=== PATIENT | female | born 1995 | race Caucasian/White ===

== ENCOUNTER 2018-01-22 16:40 | Outpatient (CLI) | payer BC, OTHER ==
[2018-01-22 16:30] VITALS: BP 133/75
[2018-01-22] MEDS ORDERED: D5 LR IV SOLUTION 1,000 ML IV ONE ×2 (16:48→17:30)
[2018-01-22 17:00] VITALS: BP 137/72
[2018-01-22 17:30] VITALS: BP 128/71
[2018-01-22 17:31] LABS: BILIRUBIN,URINE NEGATIVE (NEGATIVE); CLARITY,URINE CLEAR; COLOR,URINE YELLOW; GLUCOSE, URINE (UA) NEGATIVE (NEGATIVE); KETONES,URINE 3+ (NEGATIVE); LEUKOCYTE ESTERASE ,URINE NEGATIVE (NEGATIVE); NITRITE,URINE NEGATIVE (NEGATIVE); PH,URINE 7 (5-9); PROTEIN,URINE NEGATIVE (NEGATIVE); UROBILINOGEN,URINE NORMAL (NORMAL)
[2018-01-22 18:00] VITALS: BP 130/70
--- NOTE | 2018-01-23 09:38 | Physician Query-Final Dx ---
FARHAT CHAMPION 01/23/18 0938: Clinic Account Progress/Dx Physician Query: Please give diagnosis Date of Service Jan 22, 2018 at 16:40 BERLIN RAY MD 01/23/18 1246: Clinic Account Progress/Dx DIAGNOSIS: Diagnosis False labor FARHAT CHAMPION Jan 23, 2018 09:38 BERLIN RAY MD Jan 23, 2018 12:46
== END 2018-01-22 18:20 | disposition home or self-care (01) ==
LOC: WSo 16:40 → LDRP 16:41 → WSo 18:20
PROVIDERS: ATTEND Obstetrics & Gynecology
DX: O47.9 False labor, unspecified (principal)
CPT/HCPCS: 81000; 87088; 96360; 99213

== ENCOUNTER → 2018-03-26 | Outpatient (CLI) | payer BC ==
[~2018-03-26] MED LIST: DOCU100C37 PO; IBUP-1780 PO; OXYC-465 PO
== END ==
LOC: LABNPT 15:58
PROVIDERS: ATTEND Obstetrics & Gynecology
DX: O14.03 Mild to moderate pre-eclampsia, third trimester (principal)
CPT/HCPCS: 82570; 84156

== ENCOUNTER → 2018-04-02 | Outpatient (CLI) | payer BC | LOC: LABNPT 16:06 | PROVIDERS: ATTEND Obstetrics & Gynecology | DX: O28.8 Other abnormal findings on antenatal screening of mother (principal) | CPT/HCPCS: 82570; 84156 ==

== ENCOUNTER 2018-04-04 07:00 | Inpatient (IN) | payer BC ==
[2018-04-04] VITALS (40 sets, daily range): BP systolic 124–161; BP diastolic 62–95
[~2018-04-04] VITALS: Ht 172.7 cm; Wt 106.2 kg
[2018-04-04] MEDS ORDERED: OXYTOCIN/NORMAL SALINE 500 ML IV ONE (07:27)
[2018-04-04] MEDS ORDERED: D5 LR IV SOLUTION 1,000 ML IV ONE (07:27)
[2018-04-04] MEDS ORDERED: OXYTOCIN/NORMAL SALINE 500 ML IV SCH (07:39)
--- NOTE | 2018-04-04 07:46 | History & Physical ---
History and Physical Date Seen by Provider: Apr 04, 2018 Time Seen by Provider: 07:42 This patient is a 22-year-old primigravida white female with a due date of April 17, 2018 for 38-1/7 weeks' gestation. She is followed closely for elevated blood pressure through her . She recently developed oligohydramnios as well. She presents now for labor induction with Pitocin. She denies ruptured membranes or bleeding. A GBS culture performed suspension was negative. Allergies are none Medications are vitamins Medical social and surgical histories are present from record HEENT exam is normal Lymphadenopathy no thyromegaly Abdomen gravid soft nontender nondistended Extremities show no clubbing cyanosis. There is no Homans sign. Pelvic exam last performed in clinic showed a cervix that was closed maybe 30 percent effaced -1 station mid plane and relatively firm given her Madden score of about 4 Assessment and plan term at 30 weeks gestation with oligohydramnios and PIH. Patient is admitted now for induction of labor with Pitocin. Decision was made to forego cervical ripening agents due to their potential effects on blood pressures and risks for inspection and . Patient understands the marital wonderful women having their first baby does so via C- section. She further understands that her risk with oligohydramnios and -induced hypertension likely higher than 25 percent.. Anticipation is for vaginal delivery of the plans and preparations were placed for if needed. patient understands and agrees with the plan. 38 week gestation with PIH and oligohydramnios Allergies and Home Medications Allergies Coded Allergies: No Known Drug Allergies (Unverified , 01/22/18) Home Medications No Active Prescriptions or Reported Meds Patient Home Medication List Home Medication List Reviewed: Yes BERLIN RAY MD Apr 04, 2018 7:46 am
[2018-04-04] MEDS: D5 LR IV SOLUTION 1,000 ML IV SCH ×3 (07:50→21:05)
[2018-04-04 08:19] LABS: BASOPHILS % (AUTO) 0 % (0-10); EOSINOPHILS # (AUTO) 0.1 10^3/uL (0.0-0.3); EOSINOPHILS % (AUTO) 1 % (0-10); HEMATOCRIT 31 % (35-52); HEMOGLOBIN 10.5 G/DL (11.5-16.0); LYMPHOCYTES # (AUTO) 1.6 X 10^3 (1.0-4.0); LYMPHOCYTES % (AUTO) 16 % (12-44); MEAN CORPUSCULAR HEMOGLOBIN 27 PG (25-34); MEAN CORPUSCULAR HGB CONC 34 G/DL (32-36); MEAN CORPUSCULAR VOLUME 81 FL (80-99); MONOCYTES # (AUTO) 0.9 X 10^3 (0.0-1.0); MONOCYTES % (AUTO) 9 % (0-12); NEUTROPHILS # (AUTO) 7.3 X 10^3 (1.8-7.8); NEUTROPHILS % (AUTO) 74 % (42-75); PLATELET COUNT 385 10^3/uL (130-400); RED BLOOD COUNT 3.86 10^6/uL (4.35-5.85); RED CELL DISTRIBUTION WIDTH 15.4 % (10.0-14.5)
[2018-04-05] VITALS (23 sets, daily range): BP systolic 130–150; BP diastolic 63–95
[2018-04-05] MEDS: D5 LR IV SOLUTION 1,000 ML IV SCH (06:21)
[2018-04-05] MEDS ORDERED: METOCLOPRAMIDE INJ 10 MG/2 ML (REGLAN) ONE (11:49)
[2018-04-05] MEDS ORDERED: CITRIC ACID/SOB CIT (BICITRA) 30 ML UDC ONE (11:49)
[2018-04-05] MEDS ORDERED: metroNIDAZOLE 500MG/100ML IVPB 100 ML ONE (11:49)
[2018-04-05] MEDS ORDERED: ceFAZolin 2 GM IV Premixed 50 ML ONE (11:50)
[2018-04-05] MEDS ORDERED: fentaNYL INJECTION 100 MCG/2 ML AMP ONE (11:56)
[2018-04-05] MEDS ORDERED: OXYTOCIN/NORMAL SALINE 1,000 ML IV ONE (11:56)
[2018-04-05] MEDS ORDERED: NS (IVPB) 50 ML ONE (11:59)
[2018-04-05] MEDS ORDERED: raNItidine 50 MG/2 ML INJ (ZANTAC) ONE (11:59)
[2018-04-05] MEDS ORDERED: LIDOCAINE PF 1% 5 ML (XYLOCAINE) AMP ONE (12:00)
[2018-04-05] MEDS ORDERED: BUPIVACAINE SPINAL 0.75% (SENSORCAINE) 2 ML AMP ONE (12:00)
--- NOTE | 2018-04-05 12:09 | Progress Note-Standard ---
Standard Progress Note Progress Notes/Assess & Plan Date Seen by Provider: Apr 05, 2018 Time Seen by Provider: 08:15 Progress/Assessment & Plan Patient is without complaint. She is yajaira occasionally. Pitocin was resumed at about 6 a.m. today. She is yajaira with some regularity but with not much bigger. Plan is to continue continue Pitocin induction. Induction began making progress and reasonable time then we will continue otherwise patient likely will be relegated to delivery patient denies ruptured membranes or bleeding. She has no pain. Vital signs are stable. Afebrile R abdomen is benign. Pelvic exam reveals the cervix is barely a centimeter dilated maybe 50 percent effaced the presenting part is very high station and is. Vertex Assessment and plan induction of labor day 2 with Pitocin. The patient does not make satisfactory progress and they then we will proceed with delivery. BERLIN RAY MD Apr 05, 2018 12:09 pm
[2018-04-05] MEDS ORDERED: ONDANSETRON 4 MG/2 ML (SDV) Z0FRAN IVP PRN ×2 (12:15→13:15)
[2018-04-05] MEDS ORDERED: PROMETHAZINE INJ 25 MG/ML (PHENERGAN) AMP IM PRN (12:15)
[2018-04-05] MEDS ORDERED: MEPERIDINE (DEMEROL) INJ 100 MG/ML IM PRN (12:15)
[2018-04-05] MEDS ORDERED: MEASLES,MUMPS,RUBELLA 1 EA INJ SC ONE (12:15)
[2018-04-05] MEDS ORDERED: TETANUS,DIPTH,PERTUSS P/F (BOOSTRIX) 0.5 ML VIAL IM ONE (12:15)
[2018-04-05] MEDS ORDERED: D5 LR IV SOLUTION 1,000 ML IV ONE (12:17)
[2018-04-05] MEDS ORDERED: LACTATED RINGERS 1,000 ML IV PRN (12:37)
[2018-04-05] MEDS: OXYTOCIN/NORMAL SALINE 500 ML IV SCH ×2 (12:44→15:09)
[2018-04-05] MEDS ORDERED: CITRIC ACID/SOB CIT (BICITRA) 30 ML UDC PO ONE (12:45)
[2018-04-05] MEDS ORDERED: raNItidine 50 MG/2 ML INJ (ZANTAC) IV ONE (12:45)
[2018-04-05] MEDS ORDERED: METOCLOPRAMIDE INJ 10 MG/2 ML (REGLAN) IVP ONE (12:45)
[2018-04-05] MEDS ORDERED: OXYTOCIN/NORMAL SALINE 500 ML IV ONE (13:04)
[2018-04-05] MEDS ORDERED: fentaNYL INJECTION 100 MCG/2 ML AMP IVP PRN (13:15)
[2018-04-05] MEDS ORDERED: HYDROmorphone 1 MG/ML (DILAUDID) 1 ML SYRINGE IV PRN (13:15)
[2018-04-05] MEDS: KETOROLAC 30 MG/ML VIAL IVP SCH ×2 (15:09→21:28)
[2018-04-05] MEDS: oxyCODONE/APAP 10/325MG (PERCOCET 10) TABLET PO PRN ×2 (15:58→20:20)
--- NOTE | 2018-04-05 16:25 | OPERATIVE REPORT ---
DATE OF SERVICE: 04/05/2018 DELIVERY/OPERATIVE NOTE PREOPERATIVE DIAGNOSES: Term at 38 weeks gestation in labor with failure to progress and with history of PIH and oligohydramnios, high station. POSTOPERATIVE DIAGNOSES: Term at 38 weeks gestation in labor with failure to progress and with history of PIH and oligohydramnios with cephalopelvic disproportion. PROCEDURE: Primary low transverse delivery of a viable male with Apgars of 9 and 9 at 1 and 5 minutes. Expected weight of 9 pounds 5 ounces. Cord blood pH of 7.30 and a time of 12:43. OPERATIVE DESCRIPTION: With the patient in the supine position under satisfactory spinal anesthesia, she was prepped and draped in the usual fashion for abdominal surgery. Lamb catheter was placed in the urinary bladder and left to dependent drainage. A Pfannenstiel incision made through skin with scalpel and the patient's abdomen entered in the usual manner. Bladder retractor placed into position and a clean scalpel used to make a 4 cm hysterotomy incision transversely across the lower uterine segment that was extended by blunt dissection. Membranes were ruptured in the process of the hysterotomy. A small amount of amniotic fluid was released. It is noted that the presenting part was even above the incision, which was well above the pubic bone. This confirmed a high station. The presenting part was a vertex. Zhu forceps were applied to facilitate the delivery of a vigorous viable male infant. had Apgars, weight, time and cord pH as noted above. The infant was bulb suctioned on delivery of the head and again on completion of delivery. Umbilical cord was doubly clamped and cut and the infant passed to Dr. Chen, the tax manager cpa in attendance for delivery. Cord bloods were obtained. The placenta delivered spontaneously [place]. It was quite large and normal with a 3-vessel cord. The uterus was now exteriorized. The interior wiped and clean with a wet laparotomy sponge and the uterine incision closed with a running locked suture of 2-0 Vicryl. Hemostasis was satisfactory, but the uterus was quite atonic. In spite of IV Pitocin, the uterus remained relatively atonic. A modified B-Bond suture was placed using 2-0 looped chromic sutures placed in the usual fashion to compress the uterus. The uterus was now returned to the abdominal cavity. All blood clot and debris removed from the abdominal cavity. Sponge and needle counts were correct. Hemostasis assured. The anterior parietal peritoneum was closed with a running suture of 2-0 Vicryl. Rectus muscles were closed with that suture as well. The rectus fascia was closed with 2-0 Vicryl, subcutaneous tissue with 2-0 Vicryl and the skin was stapled. Sponge and needle counts were correct at the end of procedure. Estimated blood loss for procedure was 600 mL. The patient tolerated the procedure well and was transferred to the recovery room in stable condition. The infant remained with the mother. Job ID: [id number] DocumentID: [id number] Dictated Date: 04/05/2018 13:10:03 Treating Inspector Date: 04/05/2018 16:25:31 Dictated By: BERLIN RAY MD
[2018-04-05] MEDS: DOCUSATE SODIUM 100 MG (COLACE) CAP PO SCH (21:28)
[2018-04-06] MEDS: oxyCODONE/APAP 10/325MG (PERCOCET 10) TABLET PO PRN ×4 (00:20→18:05)
[2018-04-06 01:00] VITALS: BP 149/87
[2018-04-06] MEDS: KETOROLAC 30 MG/ML VIAL IVP SCH ×2 (02:41→21:16)
[2018-04-06 05:00] VITALS: BP 138/91
[2018-04-06] MEDS: DOCUSATE SODIUM 100 MG (COLACE) CAP PO SCH ×2 (09:35→22:13)
[2018-04-06] MEDS: IBUPROFEN 800 MG (MOTRIN) TAB PO SCH ×3 (09:35→22:13)
[2018-04-06 09:40] VITALS: BP 140/84
--- NOTE | 2018-04-06 11:17 | Anesthesia-Regional Post-Op ---
Regional Patient Condition Mental Status: Alert, Oriented x3 Circulation: Same as Pre-Op Headache: Absent Sensation: Full Recovery Motor Block: Absent Post Op Complications Complications None Follow Up Care/Instructions Patient Instructions None needed. Anesthesia/Patient Condition Patient is doing well, no complaints, stable vital signs, no apparent adverse anesthesia problems. No complications reported per nursing. NAVNEET REAL CRNA Apr 06, 2018 11:17
[2018-04-06 15:30] VITALS: BP 133/81
[2018-04-06 22:13] VITALS: BP 133/83
[2018-04-07] MEDS: oxyCODONE/APAP 10/325MG (PERCOCET 10) TABLET PO PRN ×3 (00:24→15:15)
--- NOTE | 2018-04-07 00:37 | Progress Note-Standard ---
Standard Progress Note Progress Notes/Assess & Plan Date Seen by Provider: Apr 06, 2018 Time Seen by Provider: 23:45 Progress/Assessment & Plan Patient is without complaint. She is yajaira occasionally. Pitocin was resumed at about 6 a.m. today. She is yajaira with some regularity but with not much bigger. Plan is to continue continue Pitocin induction. Induction began making progress and reasonable time then we will continue otherwise patient likely will be relegated to delivery patient denies ruptured membranes or bleeding. She has no pain. Vital signs are stable. Afebrile R abdomen is benign. Pelvic exam reveals the cervix is barely a centimeter dilated maybe 50 percent effaced the presenting part is very high station and is. Vertex Assessment and plan induction of labor day 2 with Pitocin. The patient does not make satisfactory progress and they then we will proceed with delivery. Patient was seen on April 06, 2018 2345 p.m. Patient is without complaint. She has good pain control. She is ambulating, voiding, tolerating by mouth well. She indicates that she is anticipating discharge home on April 07 area Vital Signs Date Time Temp Pulse Resp B/P (MAP) Pulse Ox O2 Delivery O2 Flow Rate FiO2 04/06/18 22:13 99.1 102 18 133/83 (100) 98 Room Air 04/06/18 15:30 99.0 102 18 133/81 (98) Room Air 04/06/18 09:40 99.1 106 16 140/84 (102) 98 Room Air 04/06/18 05:00 99.3 104 18 138/91 (107) 99 Room Air 04/06/18 01:00 99.3 102 18 149/87 (107) 99 Room Air Vital signs are stable. Patient is afebrile. Fundus is firm well the umbilicus and nontender. The surgical incision is clean dry and intact. Extremities show no clubbing cyanosis. There is no Homans sign. Assessment and plan postoperative day number 1 status post primary secondary to the progress. Patient is doing well and will be discharged on April 07. Final Diagnosis Primary delivery BERLIN RAY MD Apr 07, 2018 12:37 am
[2018-04-07] MEDS ORDERED: DOCU100C37 PO (00:43)
[2018-04-07] MEDS ORDERED: OXYC-465 PO (00:43)
[2018-04-07] MEDS ORDERED: IBUP-1780 PO (00:43)
--- NOTE | 2018-04-07 00:45 | Discharge Instructions ---
Discharge Instructions Discharge Medications New, Converted or Re-Newed RX: RX on Chart Patient Instructions Patient Instructions: as directed Return to The Hospital For: As directed Activity & Diet Discharge Diet: No Restrictions Activity as Tolerated: No Orders-Post D/C & Referrals Follow Up Appt: RTC 1 week for incision check. Call to make follow up appt. for patient in 4 weeks. Wound Care: Remove elizabeth, apply benzoin and steri strips. Activity Per routine post instructions. Diet as tolerated Patient may shower or tub bathe as desired. Continue home meds BERLIN RAY MD Apr 07, 2018 12:45 am
[2018-04-07 05:03] VITALS: BP 131/80
[2018-04-07] MEDS: IBUPROFEN 800 MG (MOTRIN) TAB PO SCH ×2 (05:03→12:38)
--- NOTE | 2018-04-07 07:24 | Discharge Summary ---
Discharge Summary TERM primary delivery This patient is a 23-year-old 1 white female who is admitted 04/04 secondary to PIH and oligohydramnios. She labored through the day on Pitocin and failed to progress. She was rested through the evening and then Pitocin was reinitiated on 04/05. She contracted fairly adequately [place] to make any progress and eventually requested a delivery. at that point was appropriate and patient was taken to the operating room where a primary delivery. Findings were consistent with CPD. Delivery was uncomplicated patient recovered uneventfully. On 04/06 the patient was without complaint. She is ambulating, voiding, tolerating by mouth, had good pain control. She is stable to the day. On 04/07 which is postoperative day number 2 the patient again is ambulating, voiding, tolerating by mouth well, has good pain control she is requesting discharge home. Principal diagnoses this hospitalization term primary delivery. Secondary diagnoses are PIH, oligohydramnios, high station at term, failure to progress in labor Operation procedure include Pitocin induction of labor, spinal analgesia, primary delivery The patient was given appropriate discharge instructions verbally and in writing. Discharge medications are Percocet and Motrin and Colace. Clinical Quality Measures DVT/VTE Risk/Contraindication: Risk Factor Score Per Nursin RFS Level Per Nursing on Admit: 1=Low/No VTE PPX BERLIN RAY MD Apr 07, 2018 7:24 am
[2018-04-07] MEDS ORDERED: TETANUS,DIPTH,PERTUSS P/F (BOOSTRIX) 0.5 ML VIAL IM ONE (09:26)
[2018-04-07] MEDS: DOCUSATE SODIUM 100 MG (COLACE) CAP PO SCH (09:33)
[2018-04-07 09:36] VITALS: BP 136/90
[2018-04-07 15:15] VITALS: BP 147/87
== END 2018-04-07 18:10 | disposition home or self-care (01) | DRG 766 ==
LOC: LDRP 07:00
PROVIDERS: ADMIT Obstetrics & Gynecology; ATTEND Obstetrics & Gynecology
PROC: 3E033VJ Introduction of Other Hormone into Peripheral Vein, Percutaneous Approach (ICD-10-PCS; 2018-04-04)
PROC: 10D00Z1 Extraction of Products of Conception, Low, Open Approach (ICD-10-PCS; principal; 2018-04-05 12:17)
DX: O41.03X0 Oligohydramnios, third trimester, not applicable or unspecified (principal); O13.4 Gestational [pregnancy-induced] hypertension without significant proteinuria, complicating childbirth; O33.9 Maternal care for disproportion, unspecified; O32.4XX0 Maternal care for high head at term, not applicable or unspecified; O75.89 Other specified complications of labor and delivery; Z37.0 Single live birth; Z3A.38 38 weeks gestation of pregnancy
CPT/HCPCS: 36415; 85025; 86850; 86900; 86901; 88307; 90715; 94664

== ENCOUNTER 2020-01-16 17:26 | Observation (INO) | payer BC ==
[2020-01-16] VITALS (8 sets, daily range): BP systolic 114–138; BP diastolic 69–83
--- NOTE | 2020-01-16 17:30 | NUR ---
Pt here via wheelchair from Dr. Villa's office. Pt here for D&C d/t miscarriage of 7wk . LUIS FERNANDO LOPEZ presented to unit via wheelchair from Dr. Villa's office, accompanied by S.o., for emergent D&C d/t 7wk miscarriage. LUIS FERNANDO LOPEZ gowned, voided, and to bed. VS taken.
[2020-01-16] MEDS ORDERED: D5 LR IV SOLUTION 1,000 ML IV SCH ×2 (17:36→17:38)
[2020-01-16] MEDS ORDERED: IBUP-1780 PO ×2 (17:41)
--- NOTE | 2020-01-16 17:42 | Discharge Inst-Surgical ---
Discharge Inst-Surgical Depart Medication/Instructions New, Converted or Re-Newed RX: Call to Patients Pharmacy Consults/Follow Up Patient Instructions: As directed Orders & Referrals Follow Up Appt: Call to make follow up appt. for patient in 2 weeks. Activity: Rest for 24 hours, than as tolerated. Please call in RX to patient pharmacy. Diet: As tolerated-Clear Liquids only if nauseated. shower or tub bathe as desired. No driving for 24 hours, no alcoholic beverages for 24 hours, and nothing per vagina (no tampons, douching, or intercoarse) for 2 weeks. Patient to return to the clinic as soon as possible for: Temperature greater than 101F, Severe Pain, Foul discharge from incision or vagina, Excessive Bleeding (more than a period). Activity Activity as Tolerated: No Diet Discharge Diet: No Restrictions BERLIN RAY MD Jan 16, 2020 17:42
--- NOTE | 2020-01-16 17:43 | Progress Note-Post Operative ---
Post-Operative Progess Note Surgeon (s)/Counselor/Art Therapist (s) Surgeon BERLIN RAY MD Counselor/Art Therapist: no Pre-Operative Diagnosis Missed/incomplete Post-Operative Diagnosis Same Procedure & Operative Findings Date of Procedure 01/16/20 Procedure Performed/Findings D&C for missed at 7 weeks gestation Anesthesia Type GETA Estimated Blood Loss Estimated blood loss (mL): 100CC Specimens/Packing Specimens Removed Uterine contents/products of conception BERLIN RAY MD Jan 16, 2020 17:43
--- NOTE | 2020-01-16 17:43 | Progress Note-Pre Operative ---
Pre-Operative Progress Note H&P Reviewed The H&P was reviewed, patient examined and no changes noted. Date Seen by Provider: Jan 16, 2020 Time Seen by Provider: 17:42 Date H&P Reviewed: Jan 16, 2020 Time H&P Reviewed: 17:42 Pre-Operative Diagnosis: Missed/incomplete BERLIN RAY MD Jan 16, 2020 17:43
[2020-01-16] MEDS ORDERED: ONDANSETRON 4 MG/2 ML (SDV) Z0FRAN IVP PRN ×2 (17:45→19:00)
[2020-01-16] MEDS ORDERED: HYDROcodone/APAP 10 MG/325 MG (LORTAB) TAB PO PRN (17:45)
[2020-01-16] MEDS ORDERED: ceFAZolin INJECTION 1,000 MG in WATER (STERILE) FOR INJECTION 10 ML IV ONE (17:45)
[2020-01-16] MEDS ORDERED: PROMETHAZINE INJ 25 MG/ML (PHENERGAN) AMP IM ONE (17:45)
[2020-01-16] MEDS ORDERED: MEPERIDINE (DEMEROL) INJ 100 MG/ML IM ONE (17:45)
[2020-01-16] MEDS ORDERED: KETOROLAC 30 MG/ML VIAL IVP ONE (17:45)
--- NOTE | 2020-01-16 17:47 | History & Physical ---
History and Physical Date Seen by Provider: Jan 16, 2020 Time Seen by Provider: 17:45 This patient is a 25-year-old G3 to P1 white female currently at 7 weeks gestation. She was seen yesterday and found in clinic have a viable . She started bleeding this morning and through the day has bled heavier. She currently reports gushing blood. She was evaluated in my clinic and found to have debris and fluid in her uterus but no overt no gestational sac no pole and no heart motion. She is bleeding fairly vigorously at the time of evaluation. She was sent to the hospital for emergent D&C. Allergies are none Medications are vitamins Medical social and surgical histories are per her H&P of 9 1719 with the accompanying interim. HEENT exam is normal Neck is supple no lymphadenopathy no thyromegaly Abdomen is soft nontender nondistended Extremities show clubbing or cyanosis. There is no Homans sign. Pelvic exam my clinic showed a vaginal vault blood was spilling clots. There was vigorous bleeding at the cervical os. Transvaginal ultrasound dem onstrated products of conception and debris but no overt Patient blood type is known to be O+ Assessment and plan 7 week gestation with missed /incomplete with hemorrhage. Plan is to proceed to the operating room for emergent D&C secondary to her significant bleeding. Surgical risk complication recovering follow-up have been fully discussed all her questions were answered and she is ready to proceed 7 week missed /incomplete AB with hemorrhage Allergies and Home Medications Allergies Coded Allergies: No Known Drug Allergies (Unverified , 01/22/18) Home Medications Docusate Sodium 100 Mg Capsule, 100 MG PO BID Prescribed by: BERLIN FRAOOQ on 04/07/18 004 Ibuprofen 800 Mg Tablet, 800 MG PO Q6H Prescribed by: BERLIN FAROOQ on 01/16/20 174 Ibuprofen 800 Mg Tablet, 800 MG PO Q6H PRN for PAIN Prescribed by: BERLIN FAROOQ on 01/16/20 174 Oxycodone HCl/Acetaminophen 1 Each Tablet, 1-2 TAB PO Q4HR PRN for PAIN-MODERATE TO SEVERE Prescribed by: BERLIN FAROOQ on 04/07/1842 Patient Home Medication List Home Medication List Reviewed: Yes BERLIN RAY MD Jan 16, 2020 17:47
--- NOTE | 2020-01-16 17:57 | NUR ---
Surgery RNss here. Pt taken off unit via bed to OR per surgery RNs
[2020-01-16] MEDS ORDERED: ceFAZolin INJECTION 1,000 MG ONE (17:58)
[2020-01-16] MEDS ORDERED: LIDOCAINE PF 2% 5 ML (XYLOCAINE) VIAL ONE (17:59)
[2020-01-16] MEDS ORDERED: proPOfol 200 MG/20 ML (DIPRIVAN) VIAL IV ONE (17:59)
[2020-01-16] MEDS ORDERED: fentaNYL INJECTION 100 MCG/2 ML AMP ONE (18:00)
[2020-01-16] MEDS ORDERED: MIDAZOLAM 2 MG/2 ML (VERSED) VIAL ONE (18:00)
[2020-01-16 18:01] LABS: BASOPHILS % (AUTO) 0 % (0-10); EOSINOPHILS # (AUTO) 0.2 10^3/uL (0.0-0.3); EOSINOPHILS % (AUTO) 2 % (0-10); HEMATOCRIT 40 % (35-52); HEMOGLOBIN 13.3 G/DL (11.5-16.0); LYMPHOCYTES # (AUTO) 1.7 X 10^3 (1.0-4.0); LYMPHOCYTES % (AUTO) 23 % (12-44); MEAN CORPUSCULAR HEMOGLOBIN 29 PG (25-34); MEAN CORPUSCULAR HGB CONC 34 G/DL (32-36); MEAN CORPUSCULAR VOLUME 86 FL (80-99); MEAN PLATELET VOLUME 9.9 FL (7.4-10.4); MONOCYTES # (AUTO) 0.6 X 10^3 (0.0-1.0); MONOCYTES % (AUTO) 8 % (0-12); NEUTROPHILS % (AUTO) 66 % (42-75); PLATELET COUNT 409 10^3/uL (130-400); RED CELL DISTRIBUTION WIDTH 12.5 % (10.0-14.5); WHITE BLOOD COUNT 7.5 10^3/uL (4.3-11.0)
[2020-01-16] MEDS ORDERED: LACTATED RINGERS 1,000 ML IV PRN (18:01)
[2020-01-16] MEDS ORDERED: KETOROLAC 30 MG/ML VIAL ONE (18:08)
[2020-01-16] MEDS ORDERED: ONDANSETRON 4 MG/2 ML (SDV) Z0FRAN ONE (18:13)
[2020-01-16] MEDS ORDERED: ROCURONIUM 10 MG/ML 5 ML SYRINGE IV ONE (18:13)
[2020-01-16] MEDS ORDERED: SUCCINYLCHOLINE INJ 100 MG/5 ML SYR ONE (18:13)
[2020-01-16] MEDS ORDERED: DEXAMETHASONE 10 MG/ML (DECADRON) 1 ML VIAL ONE (18:13)
[2020-01-16] MEDS ORDERED: SEVOFLURANE (ULTANE) 15 ML INHAL SOLN ONE (18:14)
--- NOTE | 2020-01-16 18:46 | OPERATIVE REPORT ---
DATE OF SERVICE: 01/16/2020 PREOPERATIVE DIAGNOSIS: Missed /incomplete with hemorrhage. POSTOPERATIVE DIAGNOSIS: Missed /incomplete with hemorrhage. OPERATIVE PROCEDURE: D and C for 7-week missed AB. OPERATIVE DESCRIPTION: With the patient in the supine position under satisfactory general anesthesia, she was repositioned in dorsal lithotomy position in the [facility] stirrups and prepped and draped in the usual fashion for vaginal surgery. Weighted speculum placed in posterior fornix of vagina. A large amount of clot was removed from the vagina with the suction curette. The cervix was grasped anteriorly with single tooth tenaculum. Uterus sounded to 10 cm with uterine sound. The cervix was then easily dilated to a #10 Hegar dilator. A #10 curved suction curette was then introduced and all blood clot and debris evacuated from the endometrial cavity to a good uterine cry in all 4 quadrants. Sharp curettage was then introduced and endometrial cavity was curettaged again in all 4 quadrants to good uterine cry. The curved suction curette was reintroduced and all blood clot and remaining debris was evacuated. The curette was removed as was the tenaculum. There was no bleeding from the puncture site. There was no bleeding from the cervical os. The uterus had been 8- to 10-week size prior to the procedure now nicely contracted and down to about 7-week size and firm. The procedure at this point was complete. Sponge and needle counts were correct. Estimated blood loss was around 100 mL. This would be in addition to her preoperative loss, which was estimated probably in my clinic. The patient tolerated the procedure well and was uneventfully awakened from her general anesthesia and transferred to recovery room in stable condition with plans for discharge home PAR. Job ID: [id number] DocumentID: [id number] Dictated Date: 01/16/2020 18:20:31 [employer] Manager Date: 01/16/2020 18:45:43 Dictated By: BERLIN RAY MD
--- NOTE | 2020-01-16 18:48 | Anesthesia-General Post-Op ---
General Patient Condition Mental Status/LOC: Same as Preop Cardiovascular: Satisfactory Nausea/Vomiting: Absent Respiratory: Satisfactory Pain: Controlled Complications: Absent Post Op Complications Complications None Follow Up Care/Instructions Patient Instructions None needed. Anesthesia/Patient Condition Patient Condition Patient is doing well, no complaints, stable vital signs, no apparent adverse anesthesia problems. No complications reported per nursing. SHERITA CHEN CRNA Jan 16, 2020 18:48
[2020-01-16] MEDS ORDERED: fentaNYL INJECTION 100 MCG/2 ML AMP IVP ONE (19:00)
[2020-01-16] MEDS ORDERED: MEPERIDINE (DEMEROL) INJ 50 MG/ML IVP ONE (19:00)
[2020-01-16] MEDS ORDERED: morphine INJ 10 MG/ML 1ML (SYR OR VIAL) IVP ONE (19:00)
--- NOTE | 2020-01-16 19:30 | NUR ---
Report taken from OR nurse. Pt. is stable and awake in bed. Vitals taken. Plan of care reviewed at this time. Pt is drinking water well and is given some crackers to snack on. No questions or concerns at this time.
--- NOTE | 2020-01-16 20:20 | NUR ---
2019: Discharge instructions reviewed and signed with pt. 2039: Pt. walked down to ER doors with this nurse and . No s/s of distress.
== END 2020-01-16 20:40 | disposition home or self-care (01) ==
LOC: WS 17:26
PROVIDERS: ADMIT Obstetrics & Gynecology; ATTEND Obstetrics & Gynecology
DX: O02.1 Missed abortion (principal)
CPT/HCPCS: 36415; 85025; 86850; 86900; 86901

== ENCOUNTER 2020-10-26 12:45 | Inpatient (IN) | payer SELFPAY ==
[~2020-10-26] VITALS: Ht 172.1 cm; Wt 102.0 kg
[~2020-10-26 12:45] MED LIST changes: -OXYC-465 PO; +OXYC-556 PO
[2020-11-26] VITALS (10 sets, daily range): BP systolic 130–157; BP diastolic 81–107
[2020-11-26] MEDS ORDERED: D5 LR IV SOLUTION 1,000 ML IV SCH ×2 (11:00→14:00)
[2020-11-26] MEDS ORDERED: CITRIC ACID/SOB CIT (BICITRA) 30 ML UDC PO ONE (11:00)
[2020-11-26] MEDS ORDERED: METOCLOPRAMIDE INJ 10 MG/2 ML (REGLAN) IV ONE (11:00)
[2020-11-26] MEDS ORDERED: ceFAZolin INJECTION 2,000 MG in WATER (STERILE) FOR INJECTION 10 ML IV ONE (11:00)
[2020-11-26] MEDS ORDERED: metroNIDAZOLE 500MG/100ML IVPB 100 ML IV ONE ×2 (11:00)
[2020-11-26] MEDS ORDERED: ceFAZolin 2 GM IV Premixed 50 ML IV ONE (11:00)
[2020-11-26] MEDS ORDERED: FAMOTIDINE 20MG/2ML IV (PEPCID) IV ONE (11:00)
--- NOTE | 2020-11-26 11:00 | NUR ---
JESSICALUIS FERNANDO Steve presented to unit via ambulation from ED, accompanied by , for previous scheduled repeat c/s. Pt. weighed, gowned, voided, and to bed. EFHM and TOCO applied, VS taken. Pt. oriented to bed controls, call light, TV, heat, and A/C controls.
--- NOTE | 2020-11-26 11:11 | History & Physical ---
History and Physical Date Seen by Provider: Nov 26, 2020 Time Seen by Provider: 12:24 This patient is a 25-year-old 3 para 1 A1 white female currently at 38+ weeks gestation admitted for repeat delivery due to PIH. Her blood pressures have been elevated almost of and have shown progressive increase in the third trimester. Patient denies rupture membranes or bleeding. Her GBS culture was negative. Allergies are none Medications are vitamins Medical social and surgical histories are per the antepartum record HEENT exam is normal Neck is supple no lymphadenopathy no thyromegaly Abdomen is gravid soft nontender nondistended Extremities show no clubbing or cyanosis. There is no Homans sign. Pelvic exam is deferred Assessment and plan 38+ week gestation with a history of PIH and previous C -section. Patient is admitted now for repeat delivery 38 week gestation with previous and with PIH Allergies and Home Medications Allergies Coded Allergies: No Known Drug Allergies (Unverified , 01/22/18) Home Medications No Active Prescriptions or Reported Meds Patient Home Medication List Home Medication List Reviewed: Yes BERLIN RAY MD Nov 26, 2020 11:11
[2020-11-26] MEDS: LACTATED RINGERS 1,000 ML IV SCH ×4 (11:30→13:19)
--- NOTE | 2020-11-26 11:30 | NUR ---
#20g IV to Lt hand x1 attempt per this RN. admission labs collected from site prior to IVF's infusing. site patent, secured with opsite.
[2020-11-26 11:53] LABS: BASOPHILS % (AUTO) 0 % (0-10); EOSINOPHILS # (AUTO) 0.2 10^3/uL (0.0-0.3); EOSINOPHILS % (AUTO) 2 % (0-10); HEMATOCRIT 33 % (35-52); HEMOGLOBIN 10.8 g/dL (11.5-16.0); LYMPHOCYTES # (AUTO) 1.3 10^3/uL (1.0-4.0); LYMPHOCYTES % (AUTO) 13 % (12-44); MEAN CORPUSCULAR HEMOGLOBIN 27 pg (25-34); MEAN CORPUSCULAR HGB CONC 32 g/dL (32-36); MEAN CORPUSCULAR VOLUME 83 fL (80-99); MEAN PLATELET VOLUME 10.2 fL (9.0-12.2); MONOCYTES # (AUTO) 0.8 10^3/uL (0.0-1.0); MONOCYTES % (AUTO) 8 % (0-12); NEUTROPHILS # (AUTO) 7.7 10^3/uL (1.8-7.8); NEUTROPHILS % (AUTO) 75 % (42-75); PLATELET COUNT 340 10^3/uL (130-400); WHITE BLOOD COUNT 10.2 10^3/uL (4.3-11.0)
--- NOTE | 2020-11-26 12:00 | NUR ---
Meredith, STEWARD/[facility] ROOM here to see pt.
[2020-11-26] MEDS ORDERED: fentaNYL INJECTION 100 MCG/2 ML AMP ONE (12:04)
[2020-11-26] MEDS ORDERED: OXYTOCIN PRE-MIX DRIP 1,000 ML IV ONE (12:04)
[2020-11-26] MEDS ORDERED: ROPIVACAINE 5MG/ML 30ML VIAL ONE (12:19)
--- NOTE | 2020-11-26 12:47 | NUR ---
monitors off. pt ambulated to OB c/s room with OR staff @ side.
[2020-11-26] MEDS ORDERED: PHENYLEPHRINE 100 MCG/ML 10 ML (ANESTHESIA) SYR ONE (13:28)
[2020-11-26] MEDS: KETOROLAC 30 MG/ML VIAL IVP SCH ×2 (13:30→20:18)
[2020-11-26] MEDS: OXYTOCIN PRE-MIX DRIP 500 ML IV SCH ×2 (13:55→17:05)
[2020-11-26] MEDS ORDERED: KETOROLAC 30 MG/ML VIAL ONE (13:58)
[2020-11-26] MEDS ORDERED: ONDANSETRON 4 MG/2 ML (SDV) Z0FRAN IVP PRN ×2 (14:00)
[2020-11-26] MEDS ORDERED: HYDROmorphone 2 MG/ML VIAL (DILAUDID) IV ONE (14:00)
[2020-11-26] MEDS ORDERED: fentaNYL INJECTION 100 MCG/2 ML AMP IVP PRN (14:00)
[2020-11-26] MEDS ORDERED: TETANUS,DIPTH,PERTUSS P/F (BOOSTRIX) 0.5 ML VIAL IM ONE (14:00)
[2020-11-26] MEDS ORDERED: MEASLES,MUMPS,RUBELLA 1 EA INJ SC ONE (14:00)
--- NOTE | 2020-11-26 15:00 | NUR ---
FFU/0. Lt rubra noted, no clots expressed. francisco-care offered. v-pad and panties in place.
--- NOTE | 2020-11-26 15:15 | NUR ---
pt transferred to room 304 via bed with this RN, and @ side. familiarized with room surroundings. call light within reach.
[2020-11-26] MEDS: oxyCODONE/APAP 10/325MG (PERCOCET 10) TABLET PO PRN ×2 (17:30→22:54)
--- NOTE | 2020-11-26 20:11 | OPERATIVE REPORT ---
DATE OF SERVICE: 11/26/2020 PREOPERATIVE DIAGNOSES: A 38-week gestation with PIH and previous . POSTOPERATIVE DIAGNOSES: A 38-week gestation with PIH and previous . OPERATIVE PROCEDURE: Repeat low transverse delivery of a viable male infant with Apgars of 8 and 9 at 1 and 5 minutes respectively, weight of 9 pounds, time of 13:13 and a cord blood gas of 7.29 pH. OPERATIVE DESCRIPTION: With the patient in the supine position under satisfactory spinal analgesia, she was prepped and draped in the usual fashion for abdominal surgery. Lamb catheter was placed in the urinary bladder. A repeat Pfannenstiel incision made through the skin with scalpel, the patient's abdomen entered in the usual manner. Bladder retractor placed in position, clean scalpel used to make a 4 cm hysterotomy incision transversely across the lower uterine segment that lower uterine segment was quite thin, but intact. Copious clear fluid was released on hysterotomy. Then incision was extended bluntly and then Zhu forceps were applied to facilitate delivery of a vigorous viable male . The was bulb suctioned on delivery of the head and again on completion of delivery. Umbilical cord was doubly clamped and cut and the passed to the pediatric nurse in attendance for delivery. Cord bloods were obtained. The placenta delivered spontaneously [place]. It was normal with a 3-vessel cord. The uterus was exteriorized. Interior wiped clean with a wet laparotomy sponge. Uterine incision was then closed with running locked suture of 2-0 Vicryl. Hemostasis was complete. The uterus was returned to the abdominal cavity. All blood clot and debris removed from the abdominal cavity. With sponge and needle counts correct and hemostasis assured, the anterior parietal peritoneum was closed with running suture of 2-0 Vicryl. Rectus muscles were closed with that suture as well. The rectus fascia was closed with 2-0 Vicryl, subcutaneous tissue was closed with 2-0 Vicryl and the skin was stapled. Sponge and needle counts were correct on completion of the procedure. Estimated blood loss was around 500 mL. The patient tolerated the procedure well and was transferred to the recovery room in stable condition. The had remained at the warmer near the bedside. Job ID: [id number] DocumentID: [id number] Dictated Date: 11/26/2020 13:34:14 Substation Mechanic Date: 11/26/2020 20:10:30 Dictated By: BERLIN RAY MD
--- NOTE | 2020-11-26 20:15 | NUR ---
Rn to room, pt sitting in bed, FOB holding . Plan of care reviewed. standby assist while pt ambulates to bathroom, void noted, pericare demonstrated and discussed with pt. Pt back to bed and eating dinner, fresh ice water given.
[2020-11-26] MEDS: DOCUSATE SODIUM 100 MG (COLACE) CAP PO SCH (20:19)
[2020-11-26] MEDS ORDERED: DOCUSATE SODIUM 100 MG (COLACE) CAP PO SCH (21:00)
--- NOTE | 2020-11-27 | NUR ---
Pt up to void at this time, tolerated well, ice pack given for abdomen.
[2020-11-27 02:00] VITALS: BP 151/87
[2020-11-27] MEDS: KETOROLAC 30 MG/ML VIAL IVP SCH ×2 (02:06→08:50)
[2020-11-27] MEDS: oxyCODONE/APAP 10/325MG (PERCOCET 10) TABLET PO PRN ×3 (03:54→19:41)
[2020-11-27 06:15] VITALS: BP 144/70
[2020-11-27 08:40] VITALS: BP 157/89
[2020-11-27] MEDS: DOCUSATE SODIUM 100 MG (COLACE) CAP PO SCH ×2 (08:50→20:42)
--- NOTE | 2020-11-27 13:45 | Progress Note ---
Standard Progress Note Progress Notes/Assess & Plan Date Seen by a Provider: Nov 27, 2020 Time Seen by a Provider: 13:44 Progress/Assessment & Plan This patient is without complaint. She is ambulating, voiding, tolerating oral intake well and has good pain control. Vital Signs Date Time Temp Pulse Resp B/P (MAP) Pulse Ox O2 Delivery O2 Flow Rate FiO2 11/27/20 06:15 36.9 96 18 144/70 (94) Room Air 11/27/20 02:00 36.7 95 18 151/87 (108) Room Air 11/26/20 20:45 37.0 102 18 157/81 (106) 98 Room Air 11/26/20 17:30 37.0 100 18 155/85 (108) 98 Room Air 11/26/20 14:30 36.9 116 18 138/89 (105) 98 Room Air 11/26/20 14:30 36.9 18 138/89 (105) 98 Room Air 11/26/20 14:15 35.5 18 144/87 (106) 100 Room Air 11/26/20 13:59 36.6 18 137/81 (99) 100 Room Air I & O 11/27/20 07:00 Intake Total 5050 ml Output Total 1900 ml Balance 3150 ml Vital signs are stable. Patient is afebrile. The abdomen is benign. The fundus is firm below the umbilicus and nontender. The surgical incision is clean dry and intact Extremities show no clubbing or cyanosis. There is no Homans' sign. Assessment and plan postoperative day #1 status post repeat delivery doing well. Plan is for routine convalescent care BERLIN RAY MD Nov 27, 2020 13:45
[2020-11-27] MEDS ORDERED: OXYC1TAB12 PO (13:51)
[2020-11-27] MEDS ORDERED: IBUP-1780 PO (13:51)
[2020-11-27] MEDS ORDERED: DCS100C PO (13:51)
--- NOTE | 2020-11-27 13:52 | Discharge Inst-Surgical ---
Discharge Inst-Surgical Depart Medication/Instructions New, Converted or Re-Newed RX: RX on Chart Consults/Follow Up Patient Instructions: As directed Orders & Referrals Follow Up Appt: RTC On Thursday December 03, 2020 at 9:30 AM for incision check. Call to make follow up appt. for patient in 4 weeks. Wound Care: Remove elizabeth, apply benzoin and steri strips. Activity Per routine post instructions. Please call in RX to patient pharmacy. Diet as tolerated Patient may shower or tub bathe as desired. Continue home meds Activity Activity as Tolerated: No Diet Discharge Diet: No Restrictions BERLIN RAY MD Nov 27, 2020 13:52
[2020-11-27] MEDS ORDERED: IBUPROFEN 800 MG (MOTRIN) TAB PO ONE ×2 (14:43→20:33)
[2020-11-27 14:45] VITALS: BP 159/81
--- NOTE | 2020-11-27 19:20 | NUR ---
This RN called to patient room. Patient complaining of pain and requesting pain medication.
[2020-11-27 20:40] VITALS: BP 139/96
[2020-11-27] MEDS: IBUPROFEN 800 MG (MOTRIN) TAB PO SCH (20:42)
[2020-11-28] MEDS: IBUPROFEN 800 MG (MOTRIN) TAB PO SCH ×3 (02:04→15:49)
[2020-11-28 02:05] VITALS: BP 137/79
[2020-11-28] MEDS: oxyCODONE/APAP 10/325MG (PERCOCET 10) TABLET PO PRN ×2 (03:52→13:24)
[2020-11-28 08:00] VITALS: BP 140/87
[2020-11-28] MEDS: DOCUSATE SODIUM 100 MG (COLACE) CAP PO SCH (08:55)
--- NOTE | 2020-11-28 09:24 | NUR ---
Patient states she had TDap while .
[2020-11-28] MEDS: LACTATED RINGERS 1,000 ML IV SCH ×2 (11:00→14:06)
--- NOTE | 2020-11-28 11:32 | Progress Note ---
Standard Progress Note Progress Notes/Assess & Plan Date Seen by a Provider: Nov 28, 2020 Time Seen by a Provider: 11:31 Progress/Assessment & Plan This patient is without complaint. She is ambulating, voiding, tolerating oral intake well and has good pain control. Vital Signs Date Time Temp Pulse Resp B/P (MAP) Pulse Ox O2 Delivery O2 Flow Rate FiO2 11/27/20 06:15 36.9 96 18 144/70 (94) Room Air 11/27/20 02:00 36.7 95 18 151/87 (108) Room Air 11/26/20 20:45 37.0 102 18 157/81 (106) 98 Room Air 11/26/20 17:30 37.0 100 18 155/85 (108) 98 Room Air 11/26/20 14:30 36.9 116 18 138/89 (105) 98 Room Air 11/26/20 14:30 36.9 18 138/89 (105) 98 Room Air 11/26/20 14:15 35.5 18 144/87 (106) 100 Room Air 11/26/20 13:59 36.6 18 137/81 (99) 100 Room Air I & O 11/27/20 07:00 Intake Total 5050 ml Output Total 1900 ml Balance 3150 ml Vital signs are stable. Patient is afebrile. The abdomen is benign. The fundus is firm below the umbilicus and nontender. The surgical incision is clean dry and intact Extremities show no clubbing or cyanosis. There is no Homans' sign. Assessment and plan postoperative day #1 status post repeat delivery doing well. Plan is for routine convalescent care November 28, 2020 Patient is without complaint. She is ambulating, voiding, tolerating oral intake well and has good pain control. Vital Signs Date Time Temp Pulse Resp B/P (MAP) Pulse Ox O2 Delivery O2 Flow Rate FiO2 11/28/20 08:00 36.6 94 16 140/87 (104) 98 Room Air 11/28/20 02:05 36.6 89 16 137/79 (98) 98 Room Air 11/27/20 20:40 36.5 104 18 139/96 (110) 98 Room Air 11/27/20 14:45 36.9 95 18 159/81 (107) 98 Room Air I & O 2/7/21 07:00 Intake Total 1400 ml Output Total 950 ml Balance 450 ml Vital signs are stable. Patient is afebrile. Fundus is firm below the umbilicus and nontender. The surgical incision is clean dry and intact. Extremities show no clubbing cyanosis. There is no Homans' sign. Assessment and plan post operative day #2 status post repeat delivery doing well. Plan is for discharge home with follow-up in clinic Final Diagnosis 38-week repeat delivery BERLIN RAY MD Nov 28, 2020 11:32
[2020-11-28 12:00] VITALS: BP 140/87
--- NOTE | 2020-11-28 14:46 | NUR ---
Brando removed by JACINTO Mack. SprayZoin and steri strips applied. Site looks well approximated.
--- NOTE | 2020-11-29 07:07 | Anesthesia-Regional Post-Op ---
Regional Significant Intra-Op Events Notes late entry 11/27/20 @ 0900 Patient Condition Mental Status: Alert, Oriented x3 Circulation: Same as Pre-Op Headache: Absent Sensation: Full Recovery Motor Block: Absent Post Op Complications Complications None Follow Up Care/Instructions Patient Instructions None needed. Anesthesia/Patient Condition Patient is doing well, no complaints, stable vital signs, no apparent adverse anesthesia problems. No complications reported per nursing. SHERITA CHEN CRNA Nov 29, 2020 07:07
[2020-12-01] MEDS ORDERED: IBUPROFEN 800 MG (MOTRIN) TAB PO SCH (14:00)
== END 2020-11-28 16:00 | disposition home or self-care (01) | DRG 788 ==
LOC: LDRP 11-26 10:42 → WS 11-26 15:15
PROVIDERS: ADMIT Obstetrics & Gynecology; ATTEND Obstetrics & Gynecology
PROC: 10D00Z1 Extraction of Products of Conception, Low, Open Approach (ICD-10-PCS; principal; 2020-11-26 12:49)
DX: O34.211 Maternal care for low transverse scar from previous cesarean delivery (principal); Z3A.38 38 weeks gestation of pregnancy; Z37.0 Single live birth; O13.4 Gestational [pregnancy-induced] hypertension without significant proteinuria, complicating childbirth
CPT/HCPCS: 36415; 85025; 86850; 86900; 86901

== ENCOUNTER → 2020-11-22 | Outpatient (CLI) | payer SELFPAY | LOC: LABNPT 10:58 | PROVIDERS: ATTEND Obstetrics & Gynecology | DX: O13.3 Gestational [pregnancy-induced] hypertension without significant proteinuria, third trimester (principal); Z3A.00 Weeks of gestation of pregnancy not specified | CPT/HCPCS: 82570; 84156 ==

== ENCOUNTER 2020-11-24 05:42 | Outpatient (RCR) | payer SELFPAY ==
[~2020-11-24] VITALS: Ht 172.7 cm; Wt 109.1 kg
== END 2020-11-24 13:59 | disposition home or self-care (01) ==
LOC: PREOP 05:42
PROVIDERS: ATTEND Obstetrics & Gynecology
DX: Z01.818 Encounter for other preprocedural examination (principal); O13.9 Gestational [pregnancy-induced] hypertension without significant proteinuria, unspecified trimester; Z20.822 Contact with and (suspected) exposure to COVID-19
CPT/HCPCS: 87635